=== PATIENT | female | born 1990 | race Caucasian/White ===

== ENCOUNTER → 2022-03-08 | Outpatient (REF) | payer OTHER ==
[2022-03-08 21:54] LABS: GC DNA AMPLIFICATION NEGATIVE (NEGATIVE)
== END ==
LOC: M WUC 20:12
PROVIDERS: ATTEND Physician Assistant
DX: N76.0 Acute vaginitis (principal)

== ENCOUNTER 2022-03-30 09:13 | Emergency (ER) | payer OTHER ==
[~2022-03-30] VITALS: Ht 162.6 cm; Wt 69.8 kg
[2022-03-30] MEDS ORDERED: CYCL5TAB PO (11:33)
[2022-03-30] MEDS ORDERED: PRED20TA PO (11:36)
[2022-03-30 11:51] VITALS: BP 124/73
== END 2022-03-30 11:54 | disposition home or self-care (01) ==
LOC: M ED 09:13
DX: S16.1XXA Strain of muscle, fascia and tendon at neck level, initial encounter (principal); X58.XXXA Exposure to other specified factors, initial encounter; Y92.138 Other place on military base as the place of occurrence of the external cause; Y99.1 Military activity